=== PATIENT | male | born 1950 | race Caucasian/White ===

== ENCOUNTER → 2017-10-02 | Outpatient (CLI) | payer OTHER, BC ==
[~2017-10-02] VITALS: Ht 175.3 cm; Wt 93.0 kg
[~2017-10-02] MED LIST: ADVODART PO; ARANESP10 MCG/0.4 IV; ATENOLOL 25 MG25 M1 PO; ATIVAN1 MG PO; BAYER CHEWABLE81 MG PO; BENADRYL25 MG PO; BYSTOLIC 5 MG5 MG PO; CARDURA4 MG PO; CARDURA8 MG PO; CENTRUM SILVER1 EAC2 PO; CENTRUM SILVER1 EAC4 PO; COZAAR 25 MG TA25 M2 PO; DIAZEPAM 10 MG10 M2 PO; ENGERIX B IV; FERRLECIT62.5 MG/2 IV; GENTAMICIN 0.1%15 G2 TOP; HYDROXYZINE HCL25 M1 PO; JALYN 0.5-0.41 EACH PO; LASIX 80 MG TAB80 MG PO; LEVOTHYROXIN0.125 M1 PO; LISINOPRIL40 MG PO; MELATIN3 MG PO; NEPHROCAPS SOFT1 CAP PO; NITROGLYCERIN0.4 MG SUBLING; NITROSTAT0.4 MG SL; NORVASC 5 MG TAB5 MG PO; PLAVIX 75 MG TA75 M1 PO; PRAVACHOL40 MG PO; RENAL CAPS SOFTG1 MG PO; RENVELA800 MG PO; TAMSULOSIN HCL0.4 M1 PO; TRIAMCINOLONE A80 G2; VITAMIN D-32000 UNIT PO; VITAMIN D1000 UNI1 PO; VITAMIN E200 UNI4 PO; XANAX 0.25 MG0.25 MG PO; ZOCOR 20 MG TAB20 M1 PO; [UNRECOGNIZED DRUG - OTHER] PO
--- NOTE | ~2017-10-02 | P ---
[facility] [place] [address] PROCEDURE REPORT Name: HARRY PATINO Room #: REG JOVANNY Ocasio#: [id number] Admission: 10/02/17 Attend Phys: Geovany Torres Discharge: Date of : 48 Report #: [id number] THIS REPORT FOR: //name// CC: Geovany Rae MD DATE OF SERVICE: 10/02/2017 PROCEDURE PERFORMED: Colonoscopy with polypectomies and APC cautery. HISTORY OF PRESENT ILLNESS: The patient is a 67-year-old male with a history of colon polyps, last colonoscopy being in 2009. No family history of colon cancer. He did report an episode of bright red blood last month per rectum, lasting several days. Plan is for colonoscopy. DESCRIPTION OF PROCEDURE: The risks and benefits of the procedure were explained to the patient, those risks including but not limited to bleeding, perforation, the risk of sedation. He understood these risks and gave informed consent. Sedation was given using propofol per anesthesia. Next, a digital rectal exam was initially performed, which was normal. Next, using a standard Fujinon colonoscope, the scope was placed in the patient's anus and advanced under direct vision to the cecum. The overall prep was excellent. The cecum and ileocecal valve were normal in appearance. In the ascending colon, there was a submucosal lipoma. Two polyps were noted also in the ascending colon. The larger of the two is 6 mm in size and removed by snare cautery, the smaller was 4 mm in size and removed by cold forceps. Transverse and descending colon were normal. Multiple diverticula were noted in the sigmoid colon, otherwise normal. In the rectum, there appears to be radiation proctitis changes. The patient has had a previous history reportedly of prostate cancer and I suspect he had radiation as well. Because of his recent bleeding, this was treated with APC cautery. There was no evidence of bleeding after treatment. On retroflexion, small nonbleeding internal hemorrhoids were also noted. The scope was then withdrawn and the procedure terminated. The patient tolerated the procedure well. IMPRESSION: 1. Two colonic polyps. 2. Sigmoid diverticulosis. 3. Changes consistent with radiation proctitis, status post APC cautery. 4. Small internal hemorrhoids. RECOMMENDATIONS: 1. Await biopsy results. [address] [address] PROCEDURE REPORT Name: HARRY PATINO Room #: REG JOVANNY Ocasio#: [id number] Admission: 10/02/17 Attend Phys: Geovany Torres Discharge: Date of : 48 Report #: [id number] 2. Repeat colonoscopy in 5 years. Thank you for allowing me to participate in his care. <ELECTRONICALLY SIGNED> By: Geovany Del Real MD 10/14/17 0907 0904 1216 Geovany Del Real MD /natalia
--- NOTE | ~2017-10-02 | S ---
[facility] [place] [address] SURGICAL PATH RPT PROCEDURE Name: HARRY PATINO Room #: REG [facility] M.R.#: [id number] Admission: 10/02/17 Date of : 48 Discharge: Report #: [id number] Path Case #: [id number] PATHOLOGY REPORT COLLECTION DATE: 10/02/2017 RECEIVED DATE: 10/02/2017 SUBMITTING PHYS: Dr. Geovany Del Real OTHER PHYS: Dr. Alisa Mei SPECIMEN(S) RECEIVED: A.Ascending polyps x2 * * * * * * * * * * * * FINAL DIAGNOSIS: "Ascending polyps x2", biopsy: - Sessile serrated polyp; no dysplasia seen. - Tubular adenoma; no high-grade dysplasia. (CLW:atilio; 10/03/2017) PATHOLOGIST: Chen Alvarez M.D. REPORT ELECTRONICALLY SIGNED BY: Chen Alvarez M.D. DATE/TIME: 10/03/2017 15:51 * * * * * * * * * * * * GROSS PATHOLOGY: Received in formalin labeled "Harry Patino, polyp at ascending colon 2," are 4 segments of gavin soft tissue measuring 1.3 x 1.3 x 0.5 cm in aggregate dimensions and ranging from 0.3 to 0.5 cm in maximum dimension. The specimen is submitted entirely in cassette A1. (TSD; 10/02/2017) CLINICAL HISTORY: Pre-OP DX: Hx polyps, rectal bleeding Post-OP DX: Colon polyp, radiation proctitis, diverticulosis INITIAL CPT CODE(S): A; 31508 Professional services performed by [facility] at [facility] [address], [place] [address] Technical services performed by [facility] at [address] [place] [address], [address] [address]. [facility] [address] [place] [address] SURGICAL PATH RPT PROCEDURE Name: HARRY PATINO Room #: REG JOVANNY Ocasio#: [id number] Admission: 10/02/17 Date of : 48 Discharge: Report #: [id number] Path Case #: [id number] [place] [id number] [address] PHONE: [phone] DIRECTOR: Rick Asif M.D. * * * END OF REPORT * * *
[2017-10-02 08:22] LABS: ALBUMIN 3.5 g/dL (3.4-5.0); CALCIUM 9.5 mg/dL (8.5-10.1); CREATININE 6.8 mg/dL (0.7-1.3); TOTAL BILIRUBIN 0.5 mg/dL (<0.1-1.0)
[2017-10-02 08:28] LABS: POTASSIUM 3.8 mmol/L (3.5-5.1)
== END | disposition home or self-care (01) ==
LOC: GI 09-24 06:40
PROVIDERS: Specialist
DX: Z09 Encounter for follow-up examination after completed treatment for conditions other than malignant neoplasm (principal); Z86.010 Personal history of colon polyps; K57.30 Diverticulosis of large intestine without perforation or abscess without bleeding; K62.89 Other specified diseases of anus and rectum; D12.2 Benign neoplasm of ascending colon; K64.8 Other hemorrhoids
CPT/HCPCS: 62110; 62900

== ENCOUNTER → 2017-11-07 | Outpatient (CLI) | payer OTHER, BC ==
--- NOTE | ~2017-11-07 | 2DMMODE ---
[facility] [place] [address] 2 D/M-MODE ECHOCARDIOGRAM Name: HARRY PATINO Room #: REG [facility]#: [id number] Admission: 11/07/17 Attend Phys: Edvin Osullivan MD Discharge: Date of : 48 Date of Service: 11/07/17 1603 Report #: [id number] THIS REPORT FOR: //name// APPROVED REPORT Study performed: 11/07/2017 15:04:36 EXAM: Comprehensive 2D, Doppler, and color-flow Echocardiogram Patient Location: Out-Patient Room #: Echo lab Status: routine BSA: 2.07 HR: 60 bpm BP: 132/70 mmHg Other Information Study Quality: Adequate Indications CAD 2D Dimensions RVDd: 42.87 mm LVEF(%): 65.42 (>50%) IVSd: 12.53 (7-11mm) LVOT Diam: 23.40 (18-24mm) LVDd: 56.32 mm PWd: 15.09 (7-11mm) Ascending Ao: 36.61 (22-36mm) LVDs: 35.84 (25-40mm) Aortic Root: 31.48 mm IVC: 15.00 mm Moon's LVEF: 65.42 % Volumes Left Atrial Volume (Systole) Single Plane 4CH: 79.53 mL Single Plane 2CH: 65.86 mL LA ESV Index: 37.00 mL/m2 Aortic Valve AoV Peak Bonifacio.: 2.85 m/s AO Peak Gr.: 32.51 mmHg LVOT Max P.90 mmHg AO Mean Gr.: 17.71 mmHg LVOT Mean P.92 mmHg AO V2 Mean: 1.95 m/s LVOT Max V: 1.03 m/s AO V2 VTI: 67.83 cm LVOT Mean V: 0.83 m/s ERICKA (VTI): 1.82 cm2 LVOT V1 VTI: 28.69 cm ERICKA Vmax: 1.55 cm2 AI Vmax: 4.17 m/s SV (LVOT): 123.33 mL AI [place]: 1.72 m/s2 [address] [address] 2 D/M-MODE ECHOCARDIOGRAM Name: CAREYHARRY Room #: REG CL [facility]#: [id number] Admission: 11/07/17 Attend Phys: Edvin Osullivan MD Discharge: Date of : 48 Date of Service: 11/07/17 1603 Report #: [id number] AI PHT: 703.63 ms Mitral Valve E/A Ratio: 0.8 MV Decel. Time: 363.82 ms MV E Max Bonifacio.: 1.03 m/s MV A Bonifacio.: 1.30 m/s MV PHT: 105.51 ms IVRT: 129.18 ms Pulmonary Valve PV Peak Bonifacio.: 1.16 m/s PV Peak Gr.: 5.42 mmHg Pulmonary Vein P Vein S: 0.75 m/s P Vein A: 0.30 m/s P Vein D: 0.40 m/s P Vein A Dur.: 143.0 msec P Vein S/D Ratio: 1.88 Tricuspid Valve TR Peak Bonifacio.: 2.50 m/s TR Peak Gr.: 25.07 mmHg PA Pressure: 30.00 mmHg Left Ventricle The left ventricle is normal size. Mild concentric left ventricular hypertrophy. The left ventricular systolic function is normal. The left ventricular ejection fraction is within the normal range. LVEF is 55-60%. Grade I - abnormal relaxation pattern. Right Ventricle Right ventricle is at the upper limits of normal. The right ventricular systolic function is normal. Atria Left atrium is dilated. Right atrium is at the upper limits of normal. Aortic Valve The aortic valve is normal in structure. Aortic valve is calcified. Mild aortic regurgitation. Mild aortic stenosis. Mitral Valve The mitral valve is normal in structure. Mild mitral regurgitation. No evidence of mitral valve stenosis. Tricuspid Valve [facility] [address] [place] [address] 2 D/M-MODE ECHOCARDIOGRAM Name: HARRY PATINO Room #: REG CL [facility]#: [id number] Admission: 11/07/17 Attend Phys: Edvin Osullivan MD Discharge: Date of : 48 Date of Service: 11/07/17 1603 Report #: [id number] The tricuspid valve is normal in structure. There is trace to mild tricuspid regurgitation. Estimated PAP 30 mmHg. There is mild pulmonary hypertension. Pulmonic Valve The pulmonary valve is normal in structure. Trace pulmonic regurgitation. Great Vessels The aortic root is normal in size. IVC is normal in size and collapses >50% with inspiration. Pericardium There is no pericardial effusion. <Conclusion> The left ventricle is normal size. Mild concentric left ventricular hypertrophy. The left ventricular systolic function is normal. Grade I - abnormal relaxation pattern. Left atrium is dilated. Mild aortic regurgitation. Mild aortic stenosis. Mild mitral regurgitation. There is trace to mild tricuspid regurgitation. Estimated PAP 30 mmHg. <ELECTRONICALLY SIGNED> By: Edvin Osullivan MD 11/07/17 1603 160 160 Edvin Osullivan MD /INF
== END ==
LOC: CV 13:19
DX: I08.0 Rheumatic disorders of both mitral and aortic valves (principal); I25.10 Atherosclerotic heart disease of native coronary artery without angina pectoris

== ENCOUNTER → 2018-02-20 | Outpatient (CLI) | payer OTHER, BC ==
[~2018-02-20] MED LIST changes: -COZAAR 25 MG TA25 M2 PO
== END ==
LOC: NUC 07:37
DX: I25.10 Atherosclerotic heart disease of native coronary artery without angina pectoris (principal)

== ENCOUNTER → 2018-06-02 | Outpatient (CLI) | payer OTHER, BC ==
[~2018-06-02] VITALS: Ht 175.3 cm; Wt 93.9 kg
[~2018-06-02] MED LIST changes: +COZAAR 25 MG TA25 M2 PO
--- NOTE | ~2018-06-02 | EKG ---
[address] [address] ELECTROCARDIOGRAM REPORT Name: HARRY PATINO [facility] [id number] Admission: 06/02/18 Attend Phys: Edvin Osullivan MD Discharge: Date of : 48 Report #: [id number] THIS REPORT FOR: //name// [facility] Test Date: 2018-06-02 Test Time: 07:20:36 Pat Name: HARRY PATINO Department: Room: Gender: Electrical Intern: : 1950 Requested By: Edvin Osullivan Order Number: [id number] MD: Abraham Kaye Measurements Intervals [place] Rate: 71 P: 27 MA: 171 QRS: -21 QRSD: 103 T: 16 QT: 469 QTc: 510 Interpretive Statements Sinus rhythm Inferior infarct, old Prolonged QT interval Compared to ECG 11/28/2013 06:26:25 Prolonged QT interval now present Electronically Signed On 06-02-2018 8:42:00 CDT by Abraham Kaye [email or web address] <ELECTRONICALLY SIGNED> By: Abraham Kaye MD, [facility] 06/02/18 0842 0720 9 Abraham Kaye MD, FACC /EPI
--- NOTE | ~2018-06-02 | CATHLAB ---
[facility] [address] [place] [address] INVASIVE PROCEDURE REPORT Name: HARRY PATINO Room #: [facility] [id number] Admission: 06/02/18 Attend Phys: Edvin Osullivan MD Discharge: Date of : 48 Date of Service: 06/02/18 1003 Report #: [id number] THIS REPORT FOR: //name// APPROVED REPORT Study performed: 06/02/2018 07:27:51 Patient Details Patient Status: Out-Patient Room #: The patient is a 68 year-old male Event Personnel Edvin Osullivan Car Record Clerk, Antony Salmon RN, Diamond Euceda [place], Christine RTAdela Monitor Procedures Performed Art Access - R femoral artery* Hemostasis with Manual pressure Left Heart Cath w/or w/o Coronaries [id number] [facility] [address] Initial Mod Sed Same Phys/QHP [facility] [place] [id number] [address] Mod Sed Same Phys/QHP Ea [id number] Indication Pre-op clearance, Preop evaluation for renal transplant. Risk Factors Hypercholesterolemia, Coronary Artery DiseaseHypertensionRenal Failure, Dialysis Previous Procedures/Diagnoses Previous PCI Procedure Narrative The patient was brought electively to the Cardiac Catheterization Laboratory and was prepped and draped in a sterile manner. The Right Groin^ was infiltrated with 1% Lidocaine subcutaneous anesthesia. A PINNACLE 4FR Sheath #[id number] sheath was inserted into the RFA^. Coronary angiography was performed using coronary diagnostic catheters. The right coronary system was accessed and visualized with a JR 4 catheter. The left coronary system was accessed and visualized with a JL 4 catheter. The left ventricle was accessed and visualized with a Pigtail catheter. Left ventricular/Aortic Valve gradient assessed via catheter pullback. Left ventriculogram was performed in BOURNE projection. Hemostasis was obtained with manual pressure following sheath removal without any complications. The patient tolerated the procedure well and there were no complications [facility] [place] [address] INVASIVE PROCEDURE REPORT Name: HARRY PATINO Room #: REG [facility]#: [id number] Admission: 06/02/18 Attend Phys: Edvin Osullivan MD Discharge: Date of : 48 Date of Service: 06/02/18 1003 Report #: [id number] associated with the procedure. There was no hematoma. Intraoperative Conscious Sedation Sedation start time: 08:15 Case end Time: 08:50 Fentanyl 50 mcg Versed 1.5 mg Fluoro Time: 5.56 minutes Dose: DAP 8532.00 cGycm2 717 mGy Contrast Type and Amount: Visipaque 100 ml Coronary Angiography The patient's coronary anatomy is right dominant. Diagnostic Cath Left Main Large-caliber vessel, patent with no flow-limiting lesions. LAD The proximal segment is a moderate to large caliber vessel, with no flow-limiting lesions. The LAD tapers down to a moderate size caliber vessel in the mid and distal segments. There is mild disease in both areas, less than 20%. Diagonal 1 This is a moderate size caliber vessel, traveling down the anterolateral wall, patent with no flow-limiting lesions. Circumflex This is a moderate size caliber vessel, with mild disease in the proximal segment, 20%. This vessel tapers down to a small to moderate size caliber vessel in the distal segment. OM1 This is a moderate size caliber vessel, patent with no flow-limiting lesions. This vessel travels down the mid lateral wall, out to the apex. OM2 This is a small-caliber vessel, with mild disease. Right Coronary This is a moderate to large size caliber vessel, dominant as it supplies the PDA and posterior lateral branch. This vessel is patent with only mild disease in the mid segment, 20%. R PDA This is a small size caliber vessel, terminates before the apex. Within the mid segment, there is severe diffuse disease, 70%. This is unchanged from his previous coronary angiogram and medical therapy is recommended. RPLV This is a moderate size caliber vessel, that travels down the inferolateral wall and terminates at the apex. There is a stent in the proximal segment, patent with minimal restenosis. Left Ventriculography The left ventricle is normal in size with normal contractility. The left ventricular ejection fraction is estimated to be >55%. Left ventricular wall motion abnormalities are not present. The LVEDP is [address] [address] INVASIVE PROCEDURE REPORT Name: HARRY PATINO Room #: REG CL [facility]inf[facility]#: [id number] Admission: 06/02/18 Attend Phys: Edvin Osullivan MD Discharge: Date of : 48 Date of Service: 06/02/18 1003 Report #: [id number] approximately 32 mmHg. There is no gradient across the outflow tract. Hemodynamics The aortic pressure is 196/94 mmHg with a mean of 125 mmHg. The left ventricular pressure is 188/22 mmHg with a mean of mmHg. The left ventricular end diastolic pressure is 34 mmHg. Conclusion 1. All 3 major epicardial vessels are patent with no flow-limiting lesions. 2. The stent in the right posterior lateral branch is patent with minimal restenosis. 3. The PDA is a small-caliber vessel with severe diffuse disease within the mid segment. This is unchanged from prior studies. Medical therapy is recommended. 4. Normal LV systolic function. 5. Recommend continued risk factor management. 6. The patient has no contraindications to proceed with renal transplant. <ELECTRONICALLY SIGNED> By: Edvin Osullivan MD 06/02/183 02 02 Edvin Osullivan MD /INF
[2018-06-02 07:32] VITALS: BP 165/82
[2018-06-02 07:37] LABS: HEMATOCRIT 27.8 % (42.0-52.0); HEMOGLOBIN 9.7 gm/dL (14.0-18.0); MCH 33.2 pg (26.0-34.0); MCV 94.9 fL (80.0-100.0); RBC 2.93 mil/uL (4.50-6.00); RDW 15.3 % (10.5-14.5); WBC 6.7 thou/uL (4.0-11.0)
[2018-06-02 07:52] LABS: CALCIUM 9.3 mg/dL (8.5-10.1); CREATININE 7.8 mg/dL (0.7-1.3); POTASSIUM 3.6 mmol/L (3.5-5.1)
== END | disposition home or self-care (01) ==
LOC: CATH 06:49
PROVIDERS: Internal Medicine Cardiovascular Disease
DX: I25.10 Atherosclerotic heart disease of native coronary artery without angina pectoris (principal); I95.9 Hypotension, unspecified; E78.00 Pure hypercholesterolemia, unspecified; E03.9 Hypothyroidism, unspecified; I13.11 Hypertensive heart and chronic kidney disease without heart failure, with stage 5 chronic kidney disease, or end stage renal disease; N18.6 End stage renal disease; F41.9 Anxiety disorder, unspecified; E78.5 Hyperlipidemia, unspecified; G47.30 Sleep apnea, unspecified; Z99.2 Dependence on renal dialysis; Z98.890 Other specified postprocedural states; Z88.8 Allergy status to other drugs, medicaments and biological substances; Z79.899 Other long term (current) drug therapy; Z95.5 Presence of coronary angioplasty implant and graft; Z90.89 Acquired absence of other organs; Z96.652 Presence of left artificial knee joint

== ENCOUNTER → 2018-11-25 | Outpatient (CLI) | payer OTHER, BC ==
--- NOTE | 2018-11-25 16:19 | 2DMMODE ---
[facility] [place] [address] 2 D/M-MODE ECHOCARDIOGRAM Name: HARRY PATINO Room #: REG [facility]#: [id number] ������������� Admission: 11/25/18 ������������� Attend Phys: Edvin Osullivan MD Discharge: ��� ������������� ��� Date of : 48 Date of Service: 11/25/18 1619 �� Report #: [id number] �������� ��������������������������������������������[id number] THIS REPORT FOR: //name// APPROVED REPORT Study performed: 11/25/2018 15:03:25 EXAM: Comprehensive 2D, Doppler, and color-flow Echocardiogram Patient Location: Out-Patient Room #: Echo lab 2 Status: routine BSA: 2.13 HR: 64 bpm Rhythm: NSR Other Information Study Quality: Good Indications CAD Hypertension/HDD 2D Dimensions RVDd: 32.37 mm IVSd: 11.73 (7-11mm) LVOT Diam: 23.39 (18-24mm) LVDd: 57.63 mm PWd: 14.94 (7-11mm) Ascending Ao: 37.94 (22-36mm) LVDs: 42.48 (25-40mm) Aortic Root: 35.68 mm IVC: 16.00 mm Volumes Left Atrial Volume (Systole) Single Plane 4CH: 62.90 mL Single Plane 2CH: 46.93 mL LA ESV Index: 28.00 mL/m2 Aortic Valve AoV Peak Bonifacio.: 2.97 m/s AO Peak Gr.: 35.20 mmHg LVOT Max P.29 mmHg AO Mean Gr.: 20.47 mmHg LVOT Mean P.15 mmHg AO V2 Mean: 2.10 m/s LVOT Max V: 1.16 m/s AO V2 VTI: 66.82 cm LVOT Mean V: 0.82 m/s ERICKA (VTI): 1.75 cm2 LVOT V1 VTI: 27.23 cm ERICKA Vmax: 1.68 cm2 SV (LVOT): 116.[address] [facility] [place] [address] 2 D/M-MODE ECHOCARDIOGRAM Name: CAREYHARRY CLIF Room #: REG [facility]#: [id number] ������������� Admission: 11/25/18 ������������� Attend Phys: Edvin Osullivan MD Discharge: ��� ������������� ��� Date of : 48 Date of Service: 11/25/18 1619 �� Report #: [id number] �������� ��������������������������������������������[id number] Mitral Valve E/A Ratio: 0.7 MV Decel. Time: 353.02 ms MV E Max Bonifacio.: 0.86 m/s MV A Bonifacio.: 1.27 m/s MV PHT: 102.37 ms IVRT: 143.02 ms Pulmonary Valve PV Peak Bonifacio.: 1.20 m/s PV Peak Gr.: 5.78 mmHg Pulmonary Vein P Vein S: 0.67 m/s P Vein A: 0.28 m/s P Vein D: 0.41 m/s P Vein A Dur.: 143.0 msec P Vein S/D Ratio: 1.63 Tricuspid Valve TR Peak Bonifacio.: 2.53 m/s TR Peak Gr.: 25.57 mmHg PA Pressure: 30.00 mmHg Left Ventricle Left ventricle is dilated. Mild concentric left ventricular hypertrophy. The left ventricular systolic function is normal. The left ventricular ejection fraction is within the normal range. LVEF is 50-55%. Grade I - abnormal relaxation pattern. Right Ventricle The right ventricle is normal size. The right ventricular systolic function is normal. Atria The left atrium size is normal. Right atrium is dilated. Aortic Valve The aortic valve is normal in structure. Aortic valve is calcified. No aortic regurgitation is present. Mild aortic stenosis. Mitral Valve The mitral valve is normal in structure. Mild mitral regurgitation. No evidence of mitral valve stenosis. Tricuspid Valve The tricuspid valve is normal in structure. There is trace tricuspid regurgitation. Estimated PAP 30 mmHg. There is no pulmonary [place] [id number] 2 D/M-MODE ECHOCARDIOGRAM Name: HARRY PATINO Room #: REG [facility]#: [id number] ������������� Admission: 11/25/18 ������������� Attend Phys: Edvin Osullivan MD Discharge: ��� ������������� ��� Date of : 48 Date of Service: 11/25/18 1619 �� Report #: [id number] �������� ��������������������������������������������[id number] hypertension. Pulmonic Valve The pulmonary valve is normal in structure. There is no pulmonic valvular regurgitation. Great Vessels The aortic root is normal in size. IVC is normal in size and collapses >50% with inspiration. Pericardium There is no pericardial effusion. <Conclusion> Left ventricle is dilated. Mild concentric left ventricular hypertrophy. The left ventricular systolic function is normal. Grade I - abnormal relaxation pattern. The right ventricle is normal size. The left atrium size is normal. Mild aortic stenosis. Mild mitral regurgitation. There is trace tricuspid regurgitation. Estimated PAP 30 mmHg. ��������������������������������������������� <ELECTRONICALLY SIGNED> ���������������������������������������� By: Edvin Osullivan MD ��������������������������������������������� 11/25/18 1619 1619 1619 Edvin Osullivan MD /INF
== END ==
LOC: CV 08:21
DX: I08.0 Rheumatic disorders of both mitral and aortic valves (principal); I25.10 Atherosclerotic heart disease of native coronary artery without angina pectoris; I11.9 Hypertensive heart disease without heart failure

== ENCOUNTER → 2019-12-17 | Outpatient (CLI) | payer OTHER | LOC: SJCVCIMAG 09:30 | DX: I35.1 Nonrheumatic aortic (valve) insufficiency (principal); I25.10 Atherosclerotic heart disease of native coronary artery without angina pectoris; I12.0 Hypertensive chronic kidney disease with stage 5 chronic kidney disease or end stage renal disease; N18.6 End stage renal disease; E78.00 Pure hypercholesterolemia, unspecified; E78.5 Hyperlipidemia, unspecified; E03.9 Hypothyroidism, unspecified; Z99.2 Dependence on renal dialysis; Z79.82 Long term (current) use of aspirin; Z79.899 Other long term (current) drug therapy; Z95.5 Presence of coronary angioplasty implant and graft; Z94.0 Kidney transplant status ==

== ENCOUNTER → 2020-06-02 | Outpatient (CLI) | payer OTHER | LOC: SJCVCIMAG 09:06 | PROVIDERS: ATTEND Internal Medicine Cardiovascular Disease | DX: I25.10 Atherosclerotic heart disease of native coronary artery without angina pectoris (principal); I45.10 Unspecified right bundle-branch block; I49.3 Ventricular premature depolarization; I10 Essential (primary) hypertension; I35.0 Nonrheumatic aortic (valve) stenosis; E78.00 Pure hypercholesterolemia, unspecified; Z79.899 Other long term (current) drug therapy ==

== ENCOUNTER → 2020-10-24 | Outpatient (CLI) | payer OTHER | LOC: SJCVC 13:38 | PROVIDERS: ATTEND Internal Medicine Cardiovascular Disease | DX: I25.10 Atherosclerotic heart disease of native coronary artery without angina pectoris (principal); I45.10 Unspecified right bundle-branch block; R94.31 Abnormal electrocardiogram [ECG] [EKG]; I35.0 Nonrheumatic aortic (valve) stenosis; R60.9 Edema, unspecified; E78.00 Pure hypercholesterolemia, unspecified; I12.0 Hypertensive chronic kidney disease with stage 5 chronic kidney disease or end stage renal disease; N18.6 End stage renal disease; E03.9 Hypothyroidism, unspecified; G47.30 Sleep apnea, unspecified; E78.5 Hyperlipidemia, unspecified; Z94.0 Kidney transplant status; Z99.2 Dependence on renal dialysis; Z98.890 Other specified postprocedural states; Z88.8 Allergy status to other drugs, medicaments and biological substances; Z79.899 Other long term (current) drug therapy; Z98.61 Coronary angioplasty status ==

== ENCOUNTER → 2020-11-29 | Outpatient (CLI) | payer OTHER | LOC: SJCVC 10:24 | PROVIDERS: ATTEND Internal Medicine Cardiovascular Disease | DX: R94.31 Abnormal electrocardiogram [ECG] [EKG] (principal); I51.7 Cardiomegaly; I25.10 Atherosclerotic heart disease of native coronary artery without angina pectoris; I10 Essential (primary) hypertension; I35.0 Nonrheumatic aortic (valve) stenosis; R60.9 Edema, unspecified; E78.00 Pure hypercholesterolemia, unspecified; C61 Malignant neoplasm of prostate; G47.30 Sleep apnea, unspecified; E03.9 Hypothyroidism, unspecified; Z88.8 Allergy status to other drugs, medicaments and biological substances; Z79.82 Long term (current) use of aspirin; Z79.84 Long term (current) use of oral hypoglycemic drugs; Z79.899 Other long term (current) drug therapy; Z72.89 Other problems related to lifestyle; Z91.048 Other nonmedicinal substance allergy status ==

== ENCOUNTER → 2021-05-05 | Outpatient (CLI) | payer OTHER | LOC: SJCVC 11:12 | PROVIDERS: ATTEND Internal Medicine Cardiovascular Disease | DX: R94.31 Abnormal electrocardiogram [ECG] [EKG] (principal); I49.8 Other specified cardiac arrhythmias; I25.10 Atherosclerotic heart disease of native coronary artery without angina pectoris; I35.0 Nonrheumatic aortic (valve) stenosis; E78.00 Pure hypercholesterolemia, unspecified; I12.0 Hypertensive chronic kidney disease with stage 5 chronic kidney disease or end stage renal disease; N18.6 End stage renal disease; E03.9 Hypothyroidism, unspecified; I73.9 Peripheral vascular disease, unspecified; G47.30 Sleep apnea, unspecified; Z88.1 Allergy status to other antibiotic agents; Z88.8 Allergy status to other drugs, medicaments and biological substances; Z79.899 Other long term (current) drug therapy; Z72.89 Other problems related to lifestyle ==

== ENCOUNTER → 2021-05-23 | Outpatient (CLI) | payer OTHER | LOC: SJCVCIMAG 12:00 | PROVIDERS: ATTEND Internal Medicine Cardiovascular Disease | DX: M79.604 Pain in right leg (principal); M79.605 Pain in left leg; I73.9 Peripheral vascular disease, unspecified ==

== ENCOUNTER → 2021-06-21 | Outpatient (CLI) | payer OTHER | LOC: SJCVCIMAG 08:58 | PROVIDERS: ATTEND Internal Medicine Cardiovascular Disease | DX: I35.1 Nonrheumatic aortic (valve) insufficiency (principal); R94.31 Abnormal electrocardiogram [ECG] [EKG]; I45.10 Unspecified right bundle-branch block; I12.0 Hypertensive chronic kidney disease with stage 5 chronic kidney disease or end stage renal disease; N18.6 End stage renal disease; I49.3 Ventricular premature depolarization; I25.10 Atherosclerotic heart disease of native coronary artery without angina pectoris; E78.00 Pure hypercholesterolemia, unspecified; R60.9 Edema, unspecified; I65.23 Occlusion and stenosis of bilateral carotid arteries; E03.9 Hypothyroidism, unspecified; E78.5 Hyperlipidemia, unspecified; G47.30 Sleep apnea, unspecified; Z88.6 Allergy status to analgesic agent; Z88.8 Allergy status to other drugs, medicaments and biological substances; Z79.84 Long term (current) use of oral hypoglycemic drugs; Z79.899 Other long term (current) drug therapy; Z72.89 Other problems related to lifestyle; Z95.818 Presence of other cardiac implants and grafts ==

== ENCOUNTER → 2021-07-19 | Outpatient (CLI) | payer OTHER, MEDICARE | LOC: SJCVC 08:04 | PROVIDERS: ATTEND Internal Medicine Cardiovascular Disease | DX: E78.00 Pure hypercholesterolemia, unspecified (principal); I12.0 Hypertensive chronic kidney disease with stage 5 chronic kidney disease or end stage renal disease; N18.6 End stage renal disease; I25.10 Atherosclerotic heart disease of native coronary artery without angina pectoris; E03.9 Hypothyroidism, unspecified; R60.9 Edema, unspecified; Z88.5 Allergy status to narcotic agent; Z88.8 Allergy status to other drugs, medicaments and biological substances; Z79.899 Other long term (current) drug therapy; Z98.890 Other specified postprocedural states ==

== ENCOUNTER 2021-09-07 23:16 | Emergency (ER) | payer OTHER, MEDICARE ==
[~2021-09-07] VITALS: Ht 175.3 cm; Wt 84.8 kg
[2021-09-08 01:26] LABS: CALCIUM 9.8 mg/dL (8.5-10.1); CREATININE 0.9 mg/dL (0.7-1.3); DIRECT BILIRUBIN 0.2 mg/dL (<0.1-0.2); POTASSIUM 3.1 mmol/L (3.5-5.1); TOTAL BILIRUBIN 0.6 mg/dL (0.2-1.0)
[2021-09-08 01:27] LABS: ALBUMIN 3.7 g/dL (3.4-5.0); HEMATOCRIT 40.4 % (42.0-52.0); HEMOGLOBIN 13.2 gm/dL (14.0-18.0); MCH 29.1 pg (26.0-34.0); MCHC 32.7 % (28.0-37.0); PLATELET COUNT 124 thou/uL (150-400); POLYS 61.7 % (36.0-66.0); RBC 4.54 mil/uL (4.50-6.00); RDW 14.3 % (10.5-14.5); TOTAL PROTEIN 6.4 g/dL (6.4-8.2); WBC 5.8 thou/uL (4.0-11.0)
[2021-09-08 01:28] LABS: BASOPHILS 0.4 % (0.0-2.0); EOSINOPHILS 0.4 % (0.0-3.0); LYMPHOCYTES 22.9 % (24.0-44.0); MONOCYTES 12.4 % (1.0-8.0)
[2021-09-08 02:04] VITALS: BP 162/85
--- NOTE | 2021-09-08 11:04 | EKG ---
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 <ELECTRONICALLY SIGNED> By: Td Umaña MD, [facility] 09/08/21 1104 0001 0001 Td Umaña MD, [facility] /EPI
== END 2021-09-08 03:10 | disposition home or self-care (01) ==
LOC: ER 23:16
PROVIDERS: Emergency Medicine
DX: K59.00 Constipation, unspecified (principal); E03.9 Hypothyroidism, unspecified; I12.0 Hypertensive chronic kidney disease with stage 5 chronic kidney disease or end stage renal disease; F41.9 Anxiety disorder, unspecified; E78.5 Hyperlipidemia, unspecified; Z99.2 Dependence on renal dialysis; Z91.15 Patient's noncompliance with renal dialysis; Z98.890 Other specified postprocedural states; Z90.89 Acquired absence of other organs; Z79.891 Long term (current) use of opiate analgesic; Z79.899 Other long term (current) drug therapy; Z88.8 Allergy status to other drugs, medicaments and biological substances